=== PATIENT | male | born 1945 | race American Indian/Alaskan Native ===

== ENCOUNTER 2016-10-16 18:59 | Inpatient (IN) | payer MEDICARE ==
[2016-10-16 21:01] LABS: Basophils % (Auto) 0.4 % (0.0-1.8); Eosinophils % (Auto) 0.1 % (0.0-4.3); Hematocrit 47.1 % (35.5-45.6); Hemoglobin 15.4 gm/dl (11.8-15.2); Mean Corpuscular HGB Conc 33 % (32-34); Mean Corpuscular Hemoglobin 30 pg (28-32); Mean Corpuscular Volume 91 fl (84-94); Platelet Count 159 K/mm3 (140-440); Red Blood Count 5.19 M/mm3 (3.65-5.03); Red Cell Distribution Width 14.9 % (13.2-15.2); White Blood Count 10.1 K/mm3 (4.5-11.0)
[2016-10-16 21:11] LABS: Anion Gap 18 mmol/L; BUN/Creatinine Ratio 11.66; Blood Urea Nitrogen 14 mg/dL (9-20); Calcium 9.1 mg/dL (8.4-10.2); Carbon Dioxide 23 mmol/L (22-30); Chloride 98.6 mmol/L (98-107); Glucose 97 mg/dL (75-100); Potassium 4.6 mmol/L (3.6-5.0); Sodium 135 mmol/L (137-145)
[2016-10-16] MEDS ORDERED: NACL 0.9% 1000 ML 1,000 ML IV ONE (23:55)
--- NOTE | 2016-10-17 00:01 | Emergency Department Report ---
ED Syncope HPI - General Chief Complaint: Syncope Stated Complaint: SYNCOPE Time Seen by Provider: 10/16/16 23:34 Source: patient Exam Limitations: no limitations - History of Present Illness Initial Comments: 71-year-old male with a past medical history of gout presents to the hospital complaining of syncopal episodes. Patient was working on his car and when he stood up he felt lightheaded and passed out. Family found him unresponsive and severely diaphoretic. They attempted to sit him back pain he had a second episode of passing out. Patient denies headache, chest pain, shortness of breath, nausea, vomiting, diarrhea, melena, or hematochezia. He is pain-free at this time. PMD associated with gencare - Related Data Allergies/Adverse Reactions: Allergies No Known Allergies Allergy (Verified 10/16/16 19:07) Home Medications: Ambulatory Orders No Known Home Medications [No Reported Home Medications] 10/17/16 ED Review of Systems ROS: Stated complaint: SYNCOPE Other details as noted in HPI Comment: All other systems reviewed and negative Other: Constitutional: No fevers chills Eyes: No eye pain visual changes ENT: No ear pain or throat pain Neck: Denies pain Respiratory: Denies cough wheezing shortness of breath Cardiovascular: Denies chest pain, palpitations GI: Denies abdominal pain, nausea, vomiting, diarrhea : Denies dysuria Musculoskeletal: Denies back pain Skin: Denies rash, lesions, erythema Neurologic: Denies headache, numbness, weakness Psychiatric: Denies suicidal ideation, hallucinations ED Past Medical Hx - Past Medical History Previous Medical History?: Yes Additional medical history: gout - Surgical History Past Surgical History?: Yes Additional Surgical History: tonsilectomy - Social History Smoking Status: Never Smoker - Medications Home Medications: Home Medications Medication Instructions Recorded Confirmed Last Taken Type No Known Home Medications [No 10/17/16 10/17/16 Unknown History Reported Home Medications] ED Physical Exam - General Limitations: No Limitations - Other Other exam information: General: No limitations, patient is alert in no acute distress Head exam: Atraumatic, normocephalic Eyes exam: Normal appearance, pupils equal reactive to light, extraocular movements intact ENT: Moist mucous membrane, normal oropharynx Neck exam: Normal inspection, full range of motion, no meningismus nontender Respiratory exam: Clear to auscultation bilateral, no wheezes, rales, crackles Cardiovascular: Normal rate and rhythm, normal heart sounds Abdomen: Soft, nondistended, and nontender, with normal bowel sounds, no rebound, or guarding Extremity: Full range of motion normal inspection no deformity Back: Normal Inspection, full range of motion, no tenderness Neurologic: Alert, oriented x3, cranial nerves intact, no motor or sensory deficit, brgxad-[id number]-gdwmen function intact Psychiatric: normal affect, normal mood Skin: Warm, dry, intact ED Course Vital Signs 10/16/16 10/16/16 10/16/16 19:08 22:47 23:00 Temperature 98.8 F Pulse Rate 74 51 L 71 Respiratory 18 22 14 Rate Blood Pressure 101/63 113/62 O2 Sat by Pulse 100 97 Oximetry 10/16/16 10/16/16 10/17/16 23:31 23:37 00:00 Temperature Pulse Rate 75 74 77 Respiratory 16 14 16 Rate Blood Pressure 118/57 118/57 119/78 O2 Sat by Pulse 97 98 98 Oximetry 10/17/16 10/17/16 10/17/16 00:30 01:00 01:31 Temperature Pulse Rate 62 59 L 71 Respiratory 12 17 16 Rate Blood Pressure 127/62 113/62 113/62 O2 Sat by Pulse 99 98 98 Oximetry 10/17/16 10/17/16 02:01 02:31 Temperature Pulse Rate 72 77 Respiratory 16 18 Rate Blood Pressure 122/93 77/54 O2 Sat by Pulse 98 100 Oximetry - Reevaluation(s) Reevaluation #1: 10/17/16 00:00 Vital signs orthostatic and patient symptomatic from lying to sitting.1 L normal saline 500 mL an hour ordered ED Medical Decision Making - Lab Data Result diagrams: 10/16/16 20:42 10/16/16 20:42 Lab Results 10/16/16 10/16/16 10/16/16 Range/Units 19:02 20:42 20:42 WBC 10.1 (4.5-11.0) K/mm3 RBC 5.19 H (3.65-5.03) M/mm3 Hgb 15.4 H (11.8-15.2) gm/dl Hct 47.1 H (35.5-45.6) % MCV 91 (84-94) fl MCH 30 (28-32) pg MCHC 33 (32-34) % RDW 14.9 (13.2-15.2) % Plt Count 159 (140-440) K/mm3 Lymph % (Auto) 11.4 L (13.4-35.0) % [place] % (Auto) 8.0 H (0.0-7.3) % Eos % (Auto) 0.1 (0.0-4.3) % Baso % (Auto) 0.4 (0.0-1.8) % Lymph # 1.1 L (1.2-5.4) K/mm3 [place] # 0.8 (0.0-0.8) K/mm3 Eos # 0.0 (0.0-0.4) K/mm3 Baso # 0.0 (0.0-0.1) K/mm3 Seg Neutrophils % 80.1 H (40.0-70.0) % Seg Neutrophils # 8.1 H (1.8-7.7) K/mm3 Sodium 135 L (137-145) mmol/L Potassium 4.6 (3.6-5.0) mmol/L Chloride 98.6 (98-107) mmol/L Carbon Dioxide 23 (22-30) mmol/L Anion Gap 18 mmol/L BUN 14 (9-20) mg/dL Creatinine 1.2 (0.8-1.5) mg/dL Estimated GFR > 60 ml/min BUN/Creatinine Ratio 11.66 % Glucose 97 (75-100) mg/dL POC Glucose 121 H (70-105) Calcium 9.1 (8.4-10.2) mg/dL Total Creatine Kinase (55-170) units/L CK-MB (CK-2) (0.0-4.0) ng/mL CK-MB (CK-2) Rel Index (0-4) Troponin T (0.00-0.029) ng/mL 10/17/16 Range/Units 00:33 WBC (4.5-11.0) K/mm3 RBC (3.65-5.03) M/mm3 Hgb (11.8-15.2) gm/dl Hct (35.5-45.6) % MCV (84-94) fl MCH (28-32) pg MCHC (32-34) % RDW (13.2-15.2) % Plt Count (140-440) K/mm3 Lymph % (Auto) (13.4-35.0) % [place] % (Auto) (0.0-7.3) % Eos % (Auto) (0.0-4.3) % Baso % (Auto) (0.0-1.8) % Lymph # (1.2-5.4) K/mm3 [place] # (0.0-0.8) K/mm3 Eos # (0.0-0.4) K/mm3 Baso # (0.0-0.1) K/mm3 Seg Neutrophils % (40.0-70.0) % Seg Neutrophils # (1.8-7.7) K/mm3 Sodium (137-145) mmol/L Potassium (3.6-5.0) mmol/L Chloride (98-107) mmol/L Carbon Dioxide (22-30) mmol/L Anion Gap mmol/L BUN (9-20) mg/dL Creatinine (0.8-1.5) mg/dL Estimated GFR ml/min BUN/Creatinine Ratio % Glucose (75-100) mg/dL POC Glucose (70-105) Calcium (8.4-10.2) mg/dL Total Creatine Kinase 308 H (55-170) units/L CK-MB (CK-2) 6.7 H (0.0-4.0) ng/mL CK-MB (CK-2) Rel Index 2.1 (0-4) Troponin T < 0.010 (0.00-0.029) ng/mL - EKG Data -: EKG Interpreted by Me (sinus rate 69 with atrial enlargement no ST elevation [place]) - EKG Data When compared to previous EKG there are: previous EKG unavailable - Radiology Data Radiology results: report reviewed (ct head: No grossly acute intracranial abnormalities. Mild age-related by boss and chronic small vessel ischemic change.) - Medical Decision Making Patient's orthostatic vital signs were positive. Normal saline initiated. Hospitalist informed for admission - Differential Diagnosis arrhythmia, vasovagal, orthostatic, anemia Critical Care Time: No Critical care attestation.: If time is entered above; I have spent that time in minutes in the direct care of this critically ill patient, excluding procedure time. ED Disposition Clinical Impression: Syncope, Orthostatic dizziness Disposition: OP ADMIT IP TO THIS HOSP Is pt being admited?: Yes Condition: Stable Time of Disposition: 01:29 (Dr dempsey/hosp)
[2016-10-17 01:08] LABS: Creatine Kinase MB 6.7 ng/mL (0.0-4.0)
[2016-10-17 01:09] LABS: Creatine Kinase 308 units/L (55-170)
--- NOTE | 2016-10-17 01:20 | History and Physical Report ---
History of Present Illness Date of examination: 10/17/16 Date of admission: 10/17/16 Chief complaint: Passed out History of present illness: Patient is 71-year-old history of gout. He presents because of an episode of syncope. Apparently patient was outside in yard doing some work on his car when he suddenly passed out. His neighbors called the family and was brought to the emergency department. states that she observed patient had a few jerky movements just for a few seconds. Patient remembers feeling dizzy when he got up to do some work in the car. He denies any chest pain or shortness of breath. here in ED, CT head was unremarkable. Patient will be admitted for further workup. Past History Past Medical History: other (goutgout) Past Surgical History: tonsillectomy Social history: , lives with family, smoking, alcohol abuse (occasionally ) Family history: no significant family history Medications and Allergies Allergies Allergy/AdvReac Type Severity Reaction Status Date / Time No Known Allergies Allergy Verified 10/16/16 19:07 Home Medications Medication Instructions Recorded Confirmed Last Taken Type No Known Home Medications [No 10/17/16 10/17/16 Unknown History Reported Home Medications] Active Meds: Active Medications Sodium Chloride (Nacl 0.9% 1000 Ml) 1,000 mls @ 500 mls/hr IV BOLUS ONE Stop: 10/17/16 01:54 Last Admin: 10/17/16 00:11 Dose: 500 mls/hr Review of Systems All systems: negative (no headache, no chest pain, no shortness of breath, no fever. All other systems reviewed and are negative) Exam - Physical Exam Narrative exam: Gen appearance: Not in acute distress HEENT: head atraumatic Neck:supple, no JVD Lungs: clear to auscultation bilaterally, no crackles or wheezes Heart :S1 and S2 regular, no murmurs, rubs or gallop Abdomen: Soft, non tender,non distended, normal bowel sounds Extremities :no edema,no clubbing or cyanosis, Neuro: Awake alert oriented 3, normal speech,no focal neurological signs - Constitutional Vitals: Temp Pulse Resp BP Pulse Ox 98.8 F 77 16 119/78 98 10/16/16 19:08 10/17/16 00:00 10/17/16 00:00 10/17/16 00:00 10/17/16 00:00 Results - Labs CBC & Chem 7: 10/16/16 20:42 10/16/16 20:42 Labs: Abnormal lab results 10/16/16 10/16/16 10/16/16 Range/Units 19:02 20:42 20:42 RBC 5.19 H (3.65-5.03) M/mm3 Hgb 15.4 H (11.8-15.2) gm/dl Hct 47.1 H (35.5-45.6) % Lymph % (Auto) 11.4 L (13.4-35.0) % [place] % (Auto) 8.0 H (0.0-7.3) % Lymph # 1.1 L (1.2-5.4) K/mm3 Seg Neutrophils % 80.1 H (40.0-70.0) % Seg Neutrophils # 8.1 H (1.8-7.7) K/mm3 Sodium 135 L (137-145) mmol/L POC Glucose 121 H (70-105) Total Creatine Kinase (55-170) units/L CK-MB (CK-2) (0.0-4.0) ng/mL 10/17/16 Range/Units 00:33 RBC (3.65-5.03) M/mm3 Hgb (11.8-15.2) gm/dl Hct (35.5-45.6) % Lymph % (Auto) (13.4-35.0) % [place] % (Auto) (0.0-7.3) % Lymph # (1.2-5.4) K/mm3 Seg Neutrophils % (40.0-70.0) % Seg Neutrophils # (1.8-7.7) K/mm3 Sodium (137-145) mmol/L POC Glucose (70-105) Total Creatine Kinase 308 H (55-170) units/L CK-MB (CK-2) 6.7 H (0.0-4.0) ng/mL Assessment and Plan Syncope. May be vasovagal. To rule out other etiology. Admit to telemetry. Obtain neuro checks every 6 hours. Obtain echocardiogram. Orthostatic vitals every 8 hours. Will also obtain EEG since states patient had a few jerking movements. Hyponatremia. give iv fliuids Dehydration. Started on NS History of gout. This is stable no pain currently DVT prophylaxis with heparin Full CODE STATUS
[2016-10-17] MEDS ORDERED: DULCOLAX PR PRN (01:38)
[2016-10-17] MEDS ORDERED: MORPHINE IV PRN (01:38)
[2016-10-17] MEDS ORDERED: TYLENOL PO PRN (01:38)
[2016-10-17] MEDS ORDERED: MILK OF MAGNESIA PO PRN (01:38)
[2016-10-17] MEDS ORDERED: ZOFRAN IV PRN (01:38)
[2016-10-17 03:47] LABS: Bilirubin,Urine NEG (Negative); Blood,Urine NEG (Negative); Ketones,Urine NEG (Negative); Leukocyte Esterase,Urine NEG (Negative); Nitrite,Urine NEG (Negative); Protein,Urine <15 mg/dL mg/dL (Negative); Urobilinogen,Urine < 2.0 mg/dL (<2.0); WBC,Urine < 1.0 /HPF (0.0-6.0)
[2016-10-17 03:57] LABS: RBC,Urine < 1.0 /HPF (0.0-6.0)
[2016-10-17] MEDS: HEPARIN SUB-Q SCH ×3 (06:42→21:50)
--- NOTE | 2016-10-17 07:33 | XRay Report ---
Single view chest: History: Syncope. Findings: Normal cardiomediastinal silhouette. Trachea is midline. No consolidation, pneumothorax or pleural effusion. Impression: No acute cardiopulmonary findings.
--- NOTE | 2016-10-17 07:50 | Admit Criteria Form ---
Admission Criteria Documentation: SYNCOPE Clinical Indications for Admission to Inpatient Care ( Place 'X' for any and all applicable criteria): Admission is indicated for syncope and ANY ONE of the following (1)(2)(3)(4)(5) (6)(7) : [X]I. Inpatient admission required rather than observation care (Also use Syncope: Observation Care Criteria as appropriate) because of ANY ONE of the following: [X]a) Hemodynamic instability that is severe or persistent [ ]b) Cardiac arrhythmias of immediate concern identified or strongly suspected (eg, needs electrophysiologic study) [ ]c) Acute coronary syndrome identified (Also use Myocardial Infarction or Angina Criteria form ) [ ]d) Structural cardiac disorder (eg, aortic stenosis) suspected as cause that requires immediate correction [ ]e) Respiratory symptoms (eg, dyspnea, tachypnea) that are severe or persistent [ ]f) Neurologic signs or symptoms that are severe or persistent ( eg, stroke, seizures, altered mental status) [ ]g) Severe electrolyte abnormalities requiring inpatient care [ ]h) Supplemental oxygen or respiratory treatment for over 24 hrs that are performable only in acute inpatient setting [ ]i) IV fluid to replace significant ongoing (eg, for over 24 hrs ) losses (>3 L/m2 per day) [ ]j) Continuous intravenous infusion of anticoagulation, platelet inhibitor, vasoactive, or antiarrhythmic medication(15)(16) [ ]k) Pulmonary artery catheter monitoring [ ]l) Temporary pacemaker placement(17) [ ]m) Emergent cardioversion(18) [ ]n) Other conditions, treatment or monitoring requiring inpatient admission [ ]II. Suspicion of imminently dangerous cause (eg, rare causes like pericardial tamponade, pulmonary embolism) [ ]III. Syncope causing severe injury requiring hospitalization Extended stay beyond goal length of stay may be needed for(28) [ ]a) Dangerous arrhythmia(15)(23)(27)(29) [ ]b) Myocardial ischemia [ ]c) Seizure disorder [ ]d) Syncope-related injuries The original [employer] content created by [employer] has been revised. The portions of the content which have been revised are identified through the use of italic text or in bold, and [employer] has neither reviewed nor approved the modified material. All other unmodified content is copyright [email or web address] [employer]. Please see references footnoted in the original [facility] edition 2016 Admission Criteria Met: Yes
--- NOTE | 2016-10-17 07:54 | Event Note ---
Date: 10/17/16 Admitted with Syncope, syncope workup is in progress Fall precautions, physical therapy evaluation and treatment DC planning proptosis management Patient evaluated this morning Medical records reviewed agree with the current management.
[2016-10-17] MEDS: NACL 0.9% 1000 ML 1,000 ML IV SCH (08:50)
[2016-10-18] MEDS: NACL 0.9% 1000 ML 1,000 ML IV SCH ×2 (00:47→08:20)
[2016-10-18] MEDS: HEPARIN SUB-Q SCH ×2 (06:24→14:28)
--- NOTE | 2016-10-18 09:16 | Cat Scan Report ---
FINAL REPORT EXAM: CT HEAD/BRAIN WO CON HISTORY: syncope COMPARISON: December 2009. TECHNIQUE: Axial images obtained skull base through vertex. FINDINGS: No acute intracranial hemorrhage, midline shift or pathologic extra axial fluid collection. Age related volume loss with compensatory dilatation of the ventricular system and chronic small vessel ischemic disease. Volume loss is slightly more pronounced involving the frontal lobes. 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 Otherwise, parra-white differentiation preserved. Calvarium grossly intact. Mild to moderate mucosal thickening of the paranasal sinuses. Mastoid air cells are clear. Orbits are grossly unremarkable. IMPRESSION: No grossly acute intracranial abnormality. Mild age related volume loss and chronic small vessel ischemic disease.
--- NOTE | 2016-10-18 13:10 | Discharge Summary ---
Providers - Providers Date of Admission: 10/17/16 01:38 Date of discharge: 10/18/16 Attending physician: SYED COTTRELL 10/17/16 07:51 Physical Therapy Evaluation and Treat [CONS] Routine Comment: Reason For Exam: syncope/unsteady gait Primary care physician: FLYING I INSTRUCTOR Hospitalization Reason for admission: syncope Condition: Stable Pertinent studies: Chest x-ray; normal study CT head without contrast; no acute intracranial abnormality noted Echocardiogram; normal left ventricular function ejection fraction 60-65% Carotid Doppler; no hemodynamically significant stenosis Hospital course: Very pleasant 71-year-old male patient with significant past medical history of gouty arthritis was admitted through emergency room with syncopal episode Patient reports that he passes out and feels dizzy when he suddenly gets up from the sitting position or turns around patient was admitted symptomatically managed fall precautions were observed syncope workup with CT head without contrast, echocardiogram, carotid Doppler, chest x-ray did not show any acute changes Patient received physical therapy. Orthostats were observed Today he is comfortable in bed alert awake oriented 3 not in acute distress Advise make low-dose meclizine should he have severe dizziness and vertigo as needed Patient also advised to use cane/walker and advised to stabilize himself while getting up from sitting position and ambulates slowly as tolerated. If symptoms do not improve, advised to see the neurologist for further evaluation Discharge diagnosis; Syncope Workup is negative History of gout Dehydration resolved Hyponatremia corrected Disposition: DC- TO HOME OR SELFCARE Time spent for discharge: 31 min Core Measure Documentation - Palliative Care Palliative Care/ Comfort Measures: Not Applicable - Core Measures Any of the following diagnoses?: none Exam - Constitutional Vitals: Temp Pulse Resp BP Pulse Ox 99.6 F 69 20 119/68 97 10/18/16 08:00 10/18/16 08:00 10/18/16 08:00 10/18/16 08:00 10/18/16 08:00 General appearance: Present: no acute distress, well-nourished - EENT Eyes: Present: PERRL, EOM intact - Neck Neck: Present: supple, normal ROM - Respiratory Respiratory: bilateral: diminished, negative: rales, rhonchi, wheezing - Cardiovascular Rhythm: regular Heart Sounds: Present: S1 & S2 - Extremities Extremities: no ischemia, pulses intact, pulses symmetrical - Abdominal General gastrointestinal: Present: soft, non-tender, non-distended, normal bowel sounds - Integumentary Integumentary: Present: clear, warm - Musculoskeletal Musculoskeletal: strength equal bilaterally, generalized weakness - Psychiatric Psychiatric: appropriate mood/affect, cooperative - Neurologic Neurologic: CNII-XII intact, moves all extremities Plan Activity: advance as tolerated, fall precautions Diet: regular, other (plenty fluids) Durable Medical Equipment Needed Upon Discharge: Cane Additional Instructions: see neurologist for further evaluation. If you have dizziness or weakness contact M.D. or go to emergency room. Fall Precautions Follow up with: PRIMARY CARE, [Primary Care Provider] - 3-5 Days CATRINA MEYER MD [Staff Physician] - 7 Days Prescriptions: Meclizine [Antivert] 12.5 mg PO BID PRN #20 tablet PRN Reason: Vertigo
[2016-10-18 15:54] VITALS: BP 117/64
== END 2016-10-18 17:40 | disposition home or self-care (01) | DRG 312 ==
LOC: ED 18:59 → 3A 10-17 01:38
PROVIDERS: ADMIT Internal Medicine; ATTEND Internal Medicine
DX: R55 Syncope and collapse (principal); E87.1 Hypo-osmolality and hyponatremia; E86.0 Dehydration; M10.9 Gout, unspecified; F17.200 Nicotine dependence, unspecified, uncomplicated
CPT/HCPCS: 36415; 70450; 71010; 80048; 81001; 82550; 82553; 82962; 84484; 85025; 93005; 93010; 93306; 93880; 96360; 99406; G8978-GP; G8979-GP; G8980-GP; J1644; J7030